=== PATIENT | female | born 1975 | race Hispanic/Latino ===

== ENCOUNTER 2024-04-21 18:46 | Emergency (ER) | payer SELFPAY ==
[~2024-04-21] VITALS: Ht 144.8 cm; Wt 63.0 kg
[2024-04-21 19:09] VITALS: PULSE 93; RESP 18; TEMP 98.3
[2024-04-21] MEDS ORDERED: VALACYCLOVIR500 MG PO (19:43)
[2024-04-21] MEDS ORDERED: PREDNISONE20 MG PO (19:43)
[2024-04-21 20:08] VITALS: BP 136/88; PULSE 90; RESP 18; TEMP 98.3; O2SAT 97
== END 2024-04-21 20:08 | disposition home or self-care (01) ==
LOC: FSED 19:03
DX: G51.0 Bell's palsy (principal); E11.65 Type 2 diabetes mellitus with hyperglycemia; I10 Essential (primary) hypertension; F41.9 Anxiety disorder, unspecified; F32.A Depression, unspecified
CPT/HCPCS: 36415; 70450; 82948; 99283